=== PATIENT | male | born 1990 ===

== ENCOUNTER 2024-07-15 10:02 | Outpatient (REF) | payer MEDICAID, SELFPAY ==
[2024-07-15 13:48] LABS: Second Tech Reviewed CB; Sperm(Post-Vasectomy) Absent
== END 2024-07-15 10:03 | disposition home or self-care (01) ==
LOC: LBN 10:02
PROVIDERS: PCP Pediatrics; Visit Provider Urology
DX: Z30.2 Encounter for sterilization (principal)
CPT/HCPCS: 89321